=== PATIENT | female | born 1970 | race African-American/Black ===

== ENCOUNTER 2019-05-04 16:33 | Inpatient (IN) | payer MEDICAID ==
[~2019-05-04] VITALS: Ht 157.5 cm; Wt 76.2 kg
[2019-05-04 16:40] VITALS: Ht 157.5 cm; Wt 76.2 kg
--- NOTE | 2019-05-04 16:40 | NUR ---
PT BROUGHT IN TO ED BY DAUGHTER WITH C/O SOB WHILE WALKING. AT BEDSIDE PT IS AAOX4, RESPS E/U, SKIN IS PINK, WARN AND DRY. PERRLA. ALSO, PT IS CALM AND COOPERATIVE. PT AMBULATED FROM LOBBY TO ROOM WITH STEADY GAIT AND NO ASSIST. PT PLACED ON MONITOR. PT ORIENTED TO ROOM, USE OF CALL BRIGHT AND BED IN LOWEST POSITION. BED RAIL IS UP X1 FOR SAFETY.
--- NOTE | 2019-05-04 18:45 | NUR ---
PT RESTING IN POSITION OF COMFORT. NO ACUTE DISTRESS NOTED. RESPS E/U, SKIN IS PINK, WARM AND DRY.
[2019-05-04 18:58] LABS: UA SPECIFIC GRAVITY <=1.005 (1.005-1.035); microscopic required? YES; urine erythrocyte TRACE (NEGATIVE)
[2019-05-04 19:01] LABS: BASOPHIL % 0.4 % (0-2); PLATELET COUNT 144 x10^3mcL (130-400)
[2019-05-04 19:02] LABS: RED CELL DISTRIBUTION WIDTH 15.3 % (11.5-14.5)
[2019-05-04 19:07] LABS: AMPHETAMINE QUAL UR NONE DETECTED (See below)
[2019-05-04 19:12] LABS: CALCIUM 9.3 mg/dL (8.5-10.1); CARBON DIOXIDE 26.5 mmol/L (21-32); CHLORIDE SERUM 109 mmol/L (98-107); CREATININE SERUM 0.4 mg/dL (0.6-1.0); GFR1 > 60 mL/min; GLUCOSE SERUM 99 mg/dL (74-106); POTASSIUM SERUM 3.7 mmol/L (3.5-5.1); SODIUM SERUM 144 mmol/L (136-145)
--- NOTE | 2019-05-04 19:24 | NUR ---
PATIENT AMBULATED TO THE BATHROOM, AND BACK TO THE ROOM. VITAL SIGNS RE- ASSESSED. NO COMPLAINT AT THIS TIME.
[2019-05-04 19:30] LABS: ALKALINE PHOSPHATASE 272 U/L (46-116); ALT/SGPT 21 U/L (14-59); AMYLASE 33 U/L (25-115); AST/SGOT 28 U/L (15-37); BILIRUBIN TOTAL 0.5 mg/dL (0.20-1.00); HDL CHOLESTEROL 44 mg/dL (40-60); LIPASE 55 IU/L (73-393); MAGNESIUM 1.8 mg/dL (1.8-2.4); TOTAL PROTEIN, SERUM 7.1 g/dL (6.4-8.2)
[2019-05-04 19:35] LABS: ALBUMIN 2.9 g/dL (3.4-5.0); CHOLESTEROL 94 mg/dL (<200); T4(THYROXINE) 35.3 ug/dL (4.7-13.3)
--- NOTE | 2019-05-04 21:19 | NUR ---
REPORT WAS GIVEN TO MARICRUZ. PATIENT WILL BE TRANSPORTED TO ROOM 232.
[2019-05-04 21:50] VITALS: BP 152/69
--- NOTE | 2019-05-04 22:01 | NUR ---
RECEIVED PT FROM ER, PT ADMIT FOR THYROID TOXICOSIS, PT IS A/O X4, VERBAL RESPONSIVE, ABLE TO TELL WHAT SHE NEEDS. LUNG SOUND CLEAR BILATERAL, NO COUGH, NO SOB, PT IS ON TELE 7, ST, HR 117 AT THIS MOMENT. BOWEL SOUND PRESENT ALL 4 QUADRANTS, NO DISTENTION, NO TENDER. PEDAL PULSE PRESENT BOTH FEET, TRACE EDEMA BLE. IV AT RIGHT AC, NO LEAKING, NO INFILTRATION. ALL ADLS ASSIST, ALL NEED MET, CALL LIGHT IN REACH, WILL CONTINUE TO MONITOR.
--- NOTE | 2019-05-04 23:00 | NUR ---
TRIED TO ADMINISTER COLACE BUT PT BADLY REFUSED, PT STATED SHE DOES NOT NEED IT AT THIS TIME. S SNACK GIVEN AND WELL TOLERATED. TOLERATED ORAL FLUIDS. PLACED CALL LIGHT WITHIN REACH. BEED IHN LOWEST POSITION FOR SAFETY.
--- NOTE | 2019-05-05 02:45 | NUR ---
EYES CLOSED, APPARENTLY SOUND ASLEEP BUT AROUSQABLE TO TACTILE STIMULI. NO S/S OF ACUTE DISTRESS.
--- NOTE | 2019-05-05 05:30 | NUR ---
NO S/S OF PAIN/DISCOMFORT. KEPT CLEAN AND DRY. ALL NEEEDS ATTENDED.
[2019-05-05 06:10] LABS: BASOPHIL % 0.5 % (0-2); PLATELET COUNT 140 x10^3mcL (130-400)
[2019-05-05 06:20] VITALS: BP 145/65
[2019-05-05 06:29] LABS: CALCIUM 9.6 mg/dL (8.5-10.1); CARBON DIOXIDE 24.9 mmol/L (21-32); CHLORIDE SERUM 110 mmol/L (98-107); CREATININE SERUM 0.3 mg/dL (0.6-1.0); GFR1 > 60 mL/min; GLUCOSE SERUM 100 mg/dL (74-106); MAGNESIUM 1.8 mg/dL (1.8-2.4); POTASSIUM SERUM 3.9 mmol/L (3.5-5.1); SODIUM SERUM 143 mmol/L (136-145)
[2019-05-05 07:10] LABS: RED CELL DISTRIBUTION WIDTH 15.3 % (11.5-14.5)
--- NOTE | 2019-05-05 07:25 | NUR ---
HANDOFF REPORT RECEIVED. PATIENT AWAKE ON ROUNDS. STATED " I AM OKAY...FEELING BETTER". DENIES ANY DYSPNEA. RR 16. INSTRUCTED TO CALL RN FOR ASSIST.
[2019-05-05 07:26] VITALS: BP 140/58
--- NOTE | 2019-05-05 07:46 | NUR ---
THYROID US IN PROGRESS AT BEDSIDE.
--- NOTE | 2019-05-05 08:00 | NUR ---
CANCELLATION REQUESTED FOR ECHOCARDIOGRAM
--- NOTE | 2019-05-05 10:23 | NUR ---
Discount pharmacy card and list to low cost medical clinics given to patient by Reinaldo Paniagua.
--- NOTE | 2019-05-05 10:29 | NUR ---
DENIES ANY DISCOMFORT. " I WANTED TO REST ".
[2019-05-05 12:31] VITALS: BP 120/67
[2019-05-05] MEDS ORDERED: PROPRANOLOL HCL10 MG PO (14:37)
[2019-05-05] MEDS ORDERED: METHIMAZOLE10 MG PO (14:41)
[2019-05-05 14:44] VITALS: BP 120/67
[2019-05-05 14:58] VITALS: BP 120/67
--- NOTE | 2019-05-05 15:44 | NUR ---
DISCHARGE TEACHINGS RE- MEDS, DIET, ACTIVITY, MD FOLLOW UP, WHEN TO CALL MD/911 OR GO TO ER ALL DISCUSSED AND STTED UNDERESTANDING. HEP LOCK REMOVED AND TELE DISCONTINUED. PRESCRIPTIONS AND DISCHARGE PAPERS PROVIDED TO PATIENT. ESCORTED OFF THE FLOOR BY ZACH GOFF.
== END 2019-05-05 15:45 | disposition home or self-care (01) | DRG 427 ==
LOC: ED 16:33 → DU 20:48
PROVIDERS: Emergency Medicine; ADMIT Internal Medicine
DX: E05.00 Thyrotoxicosis with diffuse goiter without thyrotoxic crisis or storm (principal); I50.41 Acute combined systolic (congestive) and diastolic (congestive) heart failure; E44.0 Moderate protein-calorie malnutrition; I16.0 Hypertensive urgency; D50.9 Iron deficiency anemia, unspecified; Z68.30 Body mass index [BMI] 30.0-30.9, adult; Z91.120 Patient's intentional underdosing of medication regimen due to financial hardship
CPT/HCPCS: 82962; 83880; G0378; G0480; Q0092